=== PATIENT | male | born 1990 | race Caucasian/White ===

== ENCOUNTER 2018-09-10 16:25 | Emergency (ER) | payer OTHER ==
[2018-09-10 16:41] VITALS: BP 118/80; PULSE 75; TEMP 98.8; BMI 21.4
--- NOTE | 2018-09-10 16:45 | PDOC ---
History of Present Illness - General Chief Complaint: Pain Stated Complaint: hand pain Time Seen by Provider: 09/10/18 16:36 History Source: Patient Exam Limitations: No Limitations - History of Present Illness Initial Comments: 28 yo M history spinal muscular atrophy presents with R index finger pain and swelling. He states that he uses his right hand to do a lot of things including all of the typing that he does on his phone. He also uses a cane on that side. He states that he noticed swelling in the right hand, but he feels aches and pains in multiple joints without any swelling. No redness, no rashes, no fever. No recent insect or tick bites, but he does live in an area where Lyme is prevalent. Past History - Past Medical History Allergies/Adverse Reactions: Allergies Allergy/AdvReac Type Severity Reaction Status Date / Time No Known Allergies Allergy Verified 09/10/18 16:26 Home Medications: Ambulatory Orders Escitalopram Oxalate [Lexapro -] 20 mg PO DAILY 09/10/18 Ibuprofen [Motrin -] 800 mg PO PRN PRN 09/10/18 Nusinersen Sodium/Pf [Spinraza 12 mg/5 ml Vial] 12 mg IT MONTHLY 09/10/18 Anemia: No Asthma: No Cancer: No Cardiac Disorders: No CVA: (MUSCULAR DYSTOPHY) COPD: No CHF: No Dementia: No Diabetes: No GI Disorders: Yes (GALL STONES) Disorders: No HTN: No Hypercholesterolemia: Yes Liver Disease: No Seizures: No Thyroid Disease: No Other medical history: spino muscular atrophy. - Surgical History Abdominal Surgery: No Appendectomy: No Cardiac Surgery: No Cholecystectomy: No Lung Surgery: No Neurologic Surgery: No Orthopedic Surgery: No - Suicide/Smoking/Psychosocial Hx Smoking Status: No Smoking History: Never smoked Have you smoked in the past 12 months: No Number of Cigarettes Smoked Daily: 1 'Breaking Loose' booklet given: 03/13/13 Hx Alcohol Use: No Drug/Substance Use Hx: No Substance Use Type: None Hx Substance Use Treatment: No Review of Systems - Review of Systems Able to Perform ROS?: Yes Comments:: GENERAL/CONSTITUTIONAL: No fever or chills. No weakness. HEAD, EYES, EARS, NOSE AND THROAT: No change in vision. No ear pain or discharge. No sore throat. CARDIOVASCULAR: No chest pain or shortness of breath. RESPIRATORY: No cough, wheezing, or hemoptysis. GASTROINTESTINAL: No nausea, vomiting, diarrhea or constipation. GENITOURINARY: No dysuria, frequency, or change in urination. MUSCULOSKELETAL: +Swelling to base of R index finger. No muscle swelling or pain. No neck pain. +Chronic back pain. SKIN: No rash. NEUROLOGIC: No headache, vertigo, loss of consciousness, or change in strength/ sensation. ENDOCRINE: No increased thirst. No abnormal weight change. HEMATOLOGIC/LYMPHATIC: No anemia, easy bleeding, or history of blood clots. ALLERGIC/IMMUNOLOGIC: No hives or skin allergy. *Physical Exam - Vital Signs Last Vital Signs Temp Pulse Resp BP Pulse Ox 98.8 F 75 18 118/80 100 09/10/18 16:26 09/10/18 16:26 09/10/18 16:26 09/10/18 16:09/10/18 16:26 - Physical Exam Comments: GENERAL: Awake, alert, and fully oriented, in no acute distress HEAD: No signs of trauma EXTREMITIES: R hand with mod nonpitting edema overlying the 2nd MCP joint. FROM , no warmth, no erythema. Remainder of extremities with normal range of motion, no edema. No clubbing or cyanosis. No cords, erythema, or tenderness. + Muscular atrophy diffusely in the limbs. NEUROLOGICAL: Cranial nerves II through XII grossly intact. Normal speech, ambulates with a cane. Motor and sensation intact SKIN: Warm, Dry, normal turgor, no rashes or lesions noted. Medical Decision Making - Medical Decision Making 09/10/18 17:01 Symptoms would suggest either an arthritis or an overuse injury (he says he uses that finger for all of his texting and phone use, and he does use that hand with his cane). However, with the complaint of multiple joints involved, will send Lyme titers, as it is prevalent in this area. NSAIDs for pain, rest, and f/u with ortho hand. *DC/Admit/Observation/Transfer Diagnosis at time of Disposition: Hand pain Qualifiers: Laterality: right Qualified Code(s): M79.641 - Pain in right hand - Discharge Dispostion Disposition: HOME Condition at time of disposition: Stable Decision to Admit order: No - Referrals Referrals: Prosper Mann [Primary Care Provider] - - Patient Instructions - Post Discharge Activity
[2018-09-10] MEDS ORDERED: IBUPROFEN 600 MG TABLET (FP) PO ONE ×2 (16:58→17:05)
== END 2018-09-10 17:41 | disposition home or self-care (01) ==
LOC: FER 16:25
DX: M79.641 Pain in right hand (principal); X58.XXXA Exposure to other specified factors, initial encounter; Y93.89 Activity, other specified; Y92.89 Other specified places as the place of occurrence of the external cause; G12.9 Spinal muscular atrophy, unspecified; E78.00 Pure hypercholesterolemia, unspecified
CPT/HCPCS: 36415; 73130-TC-RT-FY; 86618; 99282-25

== ENCOUNTER 2019-12-09 10:15 | Emergency (ER) | payer OTHER ==
[2019-12-09 10:30] VITALS: BP 100/67; PULSE 60; TEMP 98.7; BMI 22.1
[2019-12-09] MEDS ORDERED: DIPHTH,PERTUSS(ACELL),TET 0.5 ML DISP.SYRIN IM ONE ×2 (10:51→11:12)
--- NOTE | 2019-12-09 10:51 | PDOC ---
Attending Attestation - Resident Resident Name: Lai Good - ED Attending Attestation I have performed the following: I have examined & evaluated the patient, The case was reviewed & discussed with the resident, I agree w/resident's findings & plan - HPI HPI: 12/09/19 10:48 29-year-old male with history of muscular dystrophy who ambulates with cane at baseline presents with laceration to underside of chin after accidental fall. Patient tripped and struck the bottom of his chin against a door frame/wall, then fell to the ground onto his knees. Denies any significant head injury or loss of consciousness, no headache/vision change/speech change/nausea/vomiting/focal deficit. No knee pain, ambulating comfortably without motor or sensory deficit. Here primarily for his chin laceration, last tetanus was 2011. - Physicial Exam PE: 12/09/19 10:49 Alert, ambulating, no acute distress Exam is atraumatic except for a 3 cm linear horizontal laceration on the underside of chin, positive fat exposure, no foreign body or active bleeding. No C-spine tenderness, no focal bony tenderness throughout, baseline neurological exam without focal deficit - Medical Decision Making 12/09/19 10:50 29-year-old male with muscular dystrophy presents with linear laceration on the underside of his chin after accidental fall, no other injuries, hemodynamically stable. Update tetanus Laceration repaired per resident note Wound care instructions provided, return criteria discussed Discharge - Discharge Information Problems reviewed: Yes Clinical Impression/Diagnosis: Accidental fall Qualifiers: Encounter type: initial encounter Qualified Code(s): W19.XXXA - Unspecified fall, initial encounter Laceration of chin Qualifiers: Encounter type: initial encounter Qualified Code(s): S01.81XA - Laceration without foreign body of other part of head, initial encounter Condition: Stable - Follow up/Referral - Patient Discharge Instructions Patient Printed Discharge Instructions: DI for Laceration Repair - Post Discharge Activity
--- NOTE | 2019-12-09 10:55 | PDOC ---
History of Present Illness - General Chief Complaint: Laceration Stated Complaint: LACERATION TO CHIN Time Seen by Provider: 12/09/19 10:17 History Source: Patient Exam Limitations: No Limitations - History of Present Illness Initial Comments: Bony is a 29 yo healthy M w a hx of spinal muscular atrophy type 3 and a cholecystectomy who presents to the [facility] with a laceration on his chin after he lost his balance, tripped and hit his chin into the corner doorpost. He states he frequently loses his balance bc of his spinal muscular atrophy. He caught himsilf by landing on his knees and hands but denies knee or hand pain here in the ER. Did not lose consciousness, denies nausea, vomiting, syncope. Denies other injuries aside from hitting his chin. Denies taking blood thinners. Last Tetanus shot: 8 years prior PCP: Dr. Nick Gee PSH: Cholecystectomy Social Hx: Denies smoking, drinking, or other substance abuse Allergies: NKA, NKDA Past History - Medical History Allergies/Adverse Reactions: Allergies Allergy/AdvReac Type Severity Reaction Status Date / Time No Known Allergies Allergy Verified 12/09/19 10:18 Home Medications: Ambulatory Orders Escitalopram Oxalate [Lexapro -] 20 mg PO DAILY 09/10/18 Cholecalciferol (Vitamin D3) [Vitamin D3] 5,000 unit PO DAILY 12/09/19 Clonazepam 1 mg PO BID 12/09/19 Naproxen [Naprosyn] 500 mg PO BID 12/09/19 Propranolol HCl 40 mg PO BID 12/09/19 Anemia: No Asthma: No Cancer: No Cardiac Disorders: No CVA: (MUSCULAR DYSTOPHY) COPD: No CHF: No Dementia: No Diabetes: No GI Disorders: Yes (GALL STONES) Disorders: No HTN: No Hypercholesterolemia: Yes Liver Disease: No Seizures: No Thyroid Disease: No - Surgical History Abdominal Surgery: No Appendectomy: No Cardiac Surgery: No Cholecystectomy: Yes Lung Surgery: No Neurologic Surgery: No Orthopedic Surgery: No - Psycho-Social/Smoking History Smoking Status: No Smoking History: Never smoked Have you smoked in the past 12 months: No Number of Cigarettes Smoked Daily: 1 Information on smoking cessation initiated: No 'Breaking Loose' booklet given: 03/13/13 - Substance Abuse Hx (Audit-C & DAST Scrn) How often the patient has a drink containing alcohol: Never Score: In Men: 4 or > Positive; In Women: 3 or > Positive: 0 Screen Result (Pos requires Nsg. Audit-10AR): Negative In the last yr the pt used illegal drug/Rx for NonMed reason: No Score: Yes response is considered Positive: 0 Screen Result (Positive result requires Nsg. DAST-10): Negative Review of Systems - Review of Systems Able to Perform ROS?: Yes Comments:: CONSTITUTIONAL: Absent: fever, no chills, no fatigue EYES: Absent: visual changes ENT: Absent: ear pain, no sore throat CARDIOVASCULAR: Absent: chest pain, no palpitations RESPIRATORY: Absent: cough, no SOB GI: Absent: abdominal pain, no nausea, no vomiting, no constipation, no diarrhea GENITOURINARY: Absent: dysuria, no frequency, no hematuria MUSKULOSKELETAL: Absent: back pain, no arthralgia, no myalgia SKIN: Present: laceration Absent: Rash NEURO: Absent: headache *Physical Exam - Vital Signs Last Vital Signs Temp Pulse Resp BP Pulse Ox 98.7 F 60 16 100/67 100 12/09/19 10:17 12/09/19 10:17 12/09/19 10:17 12/09/19 10:17 12/09/19 10:17 - Physical Exam GENERAL: Well-appearing, well-nourished. No apparent distress. HEENT: Normocephalic, atraumatic. PERRL, EOM intact. CARDIOVASCULAR: Normal S1, S2. Regular rate and rhythm. PULMONARY: No evidence of respiratory distress. Lungs clear to auscultation bilaterally. No wheezing, rales or rhonchi. ABDOMEN: Soft, non-distended, non-tender. EXTREMITIES: Normal ROM in all four extremities. No gross deformities. SKIN: There is a 2.5 cm skin laceration under the chin. There is a superficial, irregular, flap of skin. The wound appears clean. NEUROLOGICAL: Alert, awake, appropriate. Cranial nerves 2-12 intact. No deficits to light touch in face, upper extremities and lower extremities. No motor deficits in the in face, upper extremities and lower extremities. Normal speech. Gait is normal without ataxia. Procedures - Laceration/Wound Repair Head Wound Length: to 2.5 cm Wound Explored: clean, no foreign body present Wound's Depth, Shape: superficial, irregular, flap Irrigated w/ Saline: Yes Betadine Prep: Yes Anesthesia: 1% Lidocaine Amount of Anesthetic (ccs): 5 Wound Debrided: minimal Wound Repaired With: Sutures Suture Size/Type: 5:0 Number of Sutures: 5 Layer Closure: No Sterile Dressing Applied: Yes Medical Decision Making - Medical Decision Making Bony is a 29 yo healthy M w a hx of spinal muscular atrophy type 3 and a cholecystectomy who presents to the [facility] with a laceration on his chin after he lost his balance, tripped and hit his chin into the corner doorpost. He states he frequently loses his balance bc of his spinal muscular atrophy. He caught himsilf by landing on his knees and hands but denies knee or hand pain here in the ER. Did not lose consciousness, denies nausea, vomiting, syncope. Denies other injuries aside from hitting his chin. Denies taking blood thinners. Last Tetanus shot: 8 years prior Vital Signs Temp Pulse Resp BP Pulse Ox 98.7 F 60 16 100/67 100 12/09/19 10:17 12/09/19 10:17 12/09/19 10:17 12/09/19 10:17 12/09/19 10:17 DDx IBNLT: laceration, avulsion, other injury Plan: Laceration repair, update tetanus, return precautions Lac repair: Would was thoroughly irrigated with 1L of sterille saline, cleaned with betadine, and anesthetized with 5ml of 1% lido. 5 simple 5-0 sutures placed on chin, approximated well, patient tolerated procedure well. - Tetanus updated The patient appears clinically sober, is A&O x4, and appears to be capable and have capacity to make reasonable decisions. The patient states they are currently in the emergency department, knows who the president is, states the correct time, correct day, and correct month. The patient is ambulatory in ER and has walked around the nursing station multiple times with a straight gait, and is not ataxic. Tolerating PO well, ate a sandwich and drank juice. Denies having any SI or HI. Patient states will not be driving home. I discussed the physical exam findings, ancillary test results and final diagnoses with the patient. I answered all of the patient's questions. The patient was satisfied with the care received and felt comfortable with the discharge plan and treatment plan. The patient will call their primary care physician within 24 hours to arrange follow-up and will return to the Emergency Department with any new, persistent or worsening symptoms. Dispo: Home with return in 7 days to have sutures removed. Return precautions discussed. Please note, this clinical encounter is taking place during a federal and state health care emergency attributable to the novel [place] Virus pandemic. The [place] of the Department of Health and Human Services has declared, purs uant to the Public Health Service Act 319F-3 (42 U.S.C. 247d-6d), that a covered persons activities related to medical countermeasures against COVID-19 will be immune from liability under Federal and State law. Discharge - Discharge Information Problems reviewed: Yes Clinical Impression/Diagnosis: Accidental fall Qualifiers: Encounter type: initial encounter Qualified Code(s): W19.XXXA - Unspecified fall, initial encounter Laceration of chin Qualifiers: Encounter type: initial encounter Qualified Code(s): S01.81XA - Laceration without foreign body of other part of head, initial encounter Condition: Improved Disposition: HOME - Admission No - Follow up/Referral Referrals: Nick Gee [Non Staff, Medical] - - Patient Discharge Instructions Patient Printed Discharge Instructions: DI for Laceration Repair Additional Instructions: You came into the ER after you fell with a laceration to your chin. We stitched it together with 5 simple sutures. Please come back in 7 days to have the s utures removed. If your chin starts hurting, bleeding, turning red or you see any other signs of an infection come back to the ER immediately. You must return to the Emergency Department with any new complaints, if your symptoms persist and do not improve or if you develop any other new or worsening concerns. As discussed, please call to follow up with your Primary Care physician in 1-2 days to discuss what happened to you in the emergency room, and make sure you are being looked after and taken care of. Your emergency room visit is not complete without this follow up appointment. Please read the attached handouts for further information about your ER visit and what you should do moving forward. Thank you for coming to the [facility]. We hope you feel better soon! Print Language: PORTUGUESE - Post Discharge Activity
== END 2019-12-09 11:21 | disposition home or self-care (01) ==
LOC: FER 10:15
PROC: 0JQ10ZZ Repair Face Subcutaneous Tissue and Fascia, Open Approach (ICD-10-PCS; principal; 2019-12-09)
PROC: 3E0334Z Introduction of Serum, Toxoid and Vaccine into Peripheral Vein, Percutaneous Approach (ICD-10-PCS; 2019-12-09)
DX: S01.81XA Laceration without foreign body of other part of head, initial encounter (principal); W19.XXXA Unspecified fall, initial encounter
CPT/HCPCS: 90715; 99284-25

== ENCOUNTER 2019-12-19 13:00 | Emergency (ER) | payer OTHER ==
[2019-12-19 13:24] VITALS: BP 109/74; PULSE 57; TEMP 98.1; BMI 22.4
--- NOTE | 2019-12-19 13:39 | PDOC ---
Suture Removal/Wound Check HPI - History of Present Illness Chief Complaint: Suture/Staple Removal(Here) Stated Complaint: SUTURE REMOVAL Time Seen by Provider: 12/19/19 13:39 History Source: Yes: Patient Exam Limitations: Yes: No Limitations Treated at: [facility] Date of Last ED visit: 12/09/19 - Previous ED Treatment Type of procedure performed on last visit: Yes: Laceration Repair Tetanus Immunization: Yes: Up to Date Antibiotics Prescribed: No - Onset of Previous Treatment Comment:: 29YOM with h/o muscular dystrophy who presents for wound check and suture removal after having sutures placed in chin laceration on 12/09/19. States he was supposed to come in 2 days ago but the power was out at [facility]. Denies redness, drainage, swelling, or significant pain. No systemic symptoms. Past History - Medical History Allergies/Adverse Reactions: Allergies Allergy/AdvReac Type Severity Reaction Status Date / Time No Known Allergies Allergy Verified 12/09/19 10:18 Home Medications: Ambulatory Orders Escitalopram Oxalate [Lexapro -] 20 mg PO DAILY 09/10/18 Cholecalciferol (Vitamin D3) [Vitamin D3] 5,000 unit PO DAILY 12/09/19 Clonazepam 1 mg PO BID 12/09/19 Naproxen [Naprosyn] 500 mg PO BID 12/09/19 Propranolol HCl 40 mg PO BID 12/09/19 Anemia: No Asthma: No Cancer: No Cardiac Disorders: No CVA: (MUSCULAR DYSTOPHY) COPD: No CHF: No Dementia: No Diabetes: No GI Disorders: Yes (GALL STONES) Disorders: No HTN: No Hypercholesterolemia: Yes Liver Disease: No Seizures: No Thyroid Disease: No - Surgical History Abdominal Surgery: No Appendectomy: No Cardiac Surgery: No Cholecystectomy: No Lung Surgery: No Neurologic Surgery: No Orthopedic Surgery: No - Psycho-Social/Smoking History Smoking Status: No Smoking History: Never smoked Have you smoked in the past 12 months: No Number of Cigarettes Smoked Daily: 1 'Breaking Loose' booklet given: 03/13/13 - Substance Abuse Hx (Audit-C & DAST Scrn) How often the patient has a drink containing alcohol: Never Score: In Men: 4 or > Positive; In Women: 3 or > Positive: 0 Screen Result (Pos requires Nsg. Audit-10AR): Negative In the last yr the pt used illegal drug/Rx for NonMed reason: No Score: Yes response is considered Positive: 0 Screen Result (Positive result requires Nsg. DAST-10): Negative Suture Removal/Wound Check PE - Physical Exam Laceration/Wound Check Symptoms: reports: None Current Severity Level: None Maximum Severity Level: None Pain Localization: None Location of Laceration/Wound: right: Chin Comments: 12/19/19 15:37 Clean, dry, intact, small amount of surrounding crusted scabbing which falls off easily, no discharge, no erythema, no tenderness Pain Radiation: None *Review of Systems - Review of Systems Able to Perform ROS?: Yes GEN: no fever, chills, malaise, or generalized weakness HEENT: no ear pain, congestion, sore throat, vision change, or eye pain CV: no chest pain, palpitations, lightheadedness, syncope, or edema RESP: no SOB, wheezing, or cough GI: no abdominal pain, nausea, vomiting, diarrhea, constipation, or rectal bleed : no dysuria, hematuria, or discharge MSK: no muscle weakness or pain, no joint swelling or pain NEURO: no headache, vertigo, numbness, tingling, or focal weakness PSYCH: no SI, HI, or behavior change SKIN: no jaundice, rash, lesions, or unexplained bruises ROS otherwise negative except as noted in HPI *Physical Exam - Vital Signs Last Vital Signs Temp Pulse Resp BP Pulse Ox 98.1 F 57 L 15 109/74 99 12/19/19 13:01 12/19/19 13:01 12/19/19 13:01 12/19/19 13:01 12/19/19 13:01 - Physical Exam GENERAL: well-appearing, very pleasant, cane at bedside, A/Ox4, no distress, answers questions appropriately HEENT: right medial inferior chin with 3cm healing laceration within araujo which is CDI with #[address] (all are removed), laceration is checked very carefully but unable to find any more sutures, healing without erythema, warmth, induration, fluctuance, tenderness, or drainage; otherwise exam with PERRLA, EOMI, moist mucous membranes NECK/BACK: no midline ttp, no spinal step-off or deformity, no hematoma, full ROM, neck supple CARDIOVASCULAR: regular rate/rhythm, no MGR, strong peripheral pulses, capillary refill <2 seconds, extremities wwp, no edema LUNGS/RESPIRATORY: no respiratory distress, CTAB GI/ABDOMEN: symmetric [id number], normoactive BS, soft, no ttp, no midline pulsatile masses : no CVA tenderness MSK/EXTREMITIES: no muscle atrophy, no acute deformity SKIN: warm and dry, no pallor, no jaundice, no rash, no pathologic-appearing bruising, no skin breakdown, no cuts, no lesions NEUROLOGICAL: GCS 15, CN II-XII grossly intact, no facial droop Medical Decision Making - Medical Decision Making 29YOM with muscular dystrophy presents 10 days after sutures placed in chin laceration, requesting suture removal. Initial Vital Signs Temp Pulse Resp BP Pulse Ox 98.1 F 57 L 15 109/74 99 12/19/19 13:01 12/19/19 13:01 12/19/19 13:01 12/19/19 13:12/19/19 13:01 There is no indication of infection or wound healing difficulties or other medical issues related to the chin laceration or repair at this time. 3 sutures removed from the laceration without issue. Wound checked extremely carefully for additional sutures but none are seen - likely fell out. Wound is CDI. Patient will follow up with his PCP for recheck next week. Return precautions and wound care discussed. Discharge - Discharge Information Problems reviewed: Yes Clinical Impression/Diagnosis: Visit for wound check, Visit for suture removal Condition: Good Disposition: HOME - Admission No - Follow up/Referral - Patient Discharge Instructions Patient Printed Discharge Instructions: DI for Suture Removal Additional Instructions: You were seen in the ER for suture removal. We looked extremely carefully and were able to find and remove 3 sutures (it is possible the other two fell out). Your wound is healing very well. Please follow up with your primary care provider for wound re-check next week. Come to the ER for any new or worsening emergency symptoms. If you have any signs of infection like worsening pain, redness, swelling, wound opening, or other concerns, come back to the ER. - Post Discharge Activity
== END 2019-12-19 14:06 | disposition home or self-care (01) ==
LOC: FER 13:00
DX: Z48.02 Encounter for removal of sutures (principal)
CPT/HCPCS: 99281-25

== ENCOUNTER 2020-05-16 10:40 | Emergency (ER) | payer OTHER ==
[2020-05-16 10:55] VITALS: BP 119/77; PULSE 86; TEMP 99.4; BMI 22.8
== END 2020-05-16 11:50 | disposition home or self-care (01) ==
LOC: FER 10:40
DX: M25.571 Pain in right ankle and joints of right foot (principal); S82.831A Other fracture of upper and lower end of right fibula, initial encounter for closed fracture
CPT/HCPCS: 73610-TC-RT-FY; 73630-TC-RT-FY; 99284-25

== ENCOUNTER 2020-11-21 19:39 | Emergency (ER) | payer OTHER ==
[2020-11-21 19:49] VITALS: BP 123/84; PULSE 100; TEMP 99.3; BMI 22.8
[2020-11-22 13:56] LABS: HIV INTERPRETATION NEGATIVE (NEGATIVE)
[2020-11-24 04:14] LABS: SARS-CoV-2 NAA Not Detected (Not Detected)
== END 2020-11-22 00:11 | disposition home or self-care (01) ==
LOC: FER 19:39
DX: A53.9 Syphilis, unspecified (principal); R53.83 Other fatigue; R09.81 Nasal congestion
CPT/HCPCS: 36415; 86593; 86780; 87389; 87491; 87591; 99283-25; C9803; U0003; U0005

== ENCOUNTER 2021-05-08 22:19 | Emergency (ER) | payer OTHER ==
[2021-05-08 22:38] VITALS: BP 119/77; PULSE 78; BMI 23.6
== END 2021-05-08 23:46 | disposition home or self-care (01) ==
LOC: FER 22:19
PROC: 0HQ1XZZ Repair Face Skin, External Approach (ICD-10-PCS; principal; 2021-05-08)
DX: S01.81XA Laceration without foreign body of other part of head, initial encounter (principal); W19.XXXA Unspecified fall, initial encounter
CPT/HCPCS: 12011-25; 70110-TC-FY; 99283-25

== ENCOUNTER 2023-07-13 22:08 | Emergency (ER) | payer OTHER ==
[2023-07-13 22:16] VITALS: RESP 16; BMI 23.8
[2023-07-13 22:42] VITALS: BP 130/95; PULSE 95; TEMP 99.5
== END 2023-07-13 23:19 | disposition home or self-care (01) ==
LOC: FER 22:08
DX: L04.0 Acute lymphadenitis of face, head and neck (principal); L72.3 Sebaceous cyst
CPT/HCPCS: 99281-25